=== PATIENT | male | born 1945 | race Caucasian/White ===

== ENCOUNTER → 2018-05-06 | Outpatient (CLI) | payer OTHER ==
--- NOTE | 2018-05-06 15:26 | US ---
EXAMINATION TYPE: US groin LT DATE OF EXAM: 05/06/2018 COMPARISON: NONE CLINICAL HISTORY: K40.91 Unilateral inguinal hernia. Patient positive for left inguinal hernia. Peristalsis seen with and without valsalva. IMPRESSION: Inguinal hernia is noted containing bowel.
== END | disposition home or self-care (01) ==
LOC: RADUSWWP 10:01
DX: K40.90 Unilateral inguinal hernia, without obstruction or gangrene, not specified as recurrent (principal)

== ENCOUNTER 2020-04-14 15:16 | Inpatient (IN) | payer OTHER, MEDICARE ==
[2020-04-14] MEDS ORDERED: SODIUM CHLORIDE 0.9% 500 ML 500 ML IV STA (15:20)
--- NOTE | 2020-04-14 15:30 | ED ---
General Adult HPI - General Source: EMS Mode of arrival: EMS Limitations: no limitations <Monica Perez - Last Filed: 04/14/20 19:01> <Vicky Peralta - Last Filed: 04/15/20 16:24> - General Chief complaint: Syncope Stated complaint: syncopal episode Time Seen by Provider: 04/14/20 15:20 - History of Present Illness Initial comments: 75-year-old male history of thoracic aortic aneurysm presenting to the emergency department today for chief complaint of syncopal episode. Patient states he felt lightheaded suddenly sweaty and had a syncopal episode just prior to arrival he is unsure how long he was unconscious. Patient denies any seizure history. Patient states he called EMS for transportation to the emergency department he denies any chest pain he states he has slight shortness of breath at times Denies leg swelling, back pain, epigastric or abdominal pain. Denies headaches, nausea, vomiting, visual changes, denies neck pain, denies anticoagulation use. Patient denies injury to extremities, abdomen or back from fall. Patient denies current symptoms. UPon arrival patient appears wlel nontoxic in no acute dsitress. Patient was no aware of his thoracic aortic aneurysm on arrival this was caught on patient previous visits on chart review. (Monica Perez) - Related Data Home Medications Medication Instructions Recorded Confirmed Cholecalciferol [Vitamin D3 (25 2,000 unit PO DAILY 04/14/20 04/14/20 Mcg = 1000 Iu)] Lisinopril-Hctz 20-12.5 mg 1 tab PO DAILY 04/14/20 04/14/20 [Zestoretic 20-12.5] Omeprazole 20 mg PO DAILY 04/14/20 04/14/20 Simvastatin [Zocor] 10 mg PO HS 04/14/20 04/14/20 Allergies Allergy/AdvReac Type Severity Reaction Status Date / Time No Known Allergies Allergy Verified 04/14/20 18:42 Review of Systems ROS Other: All systems not noted in ROS Statement are negative. <Monica Perez - Last Filed: 04/14/20 19:01> ROS Other: All systems not noted in ROS Statement are negative. <Vicky Peralta - Last Filed: 04/15/20 16:24> ROS Statement: Those systems with pertinent positive or pertinent negative responses have been documented in the HPI. Past Medical History Past Medical History: No Reported History Additional Past Medical History / Comment(s): THORACIC AORTIC ANEURSYM History of Any Multi-Drug Resistant Organisms: None Reported Past Surgical History: No Surgical Hx Reported Past Psychological History: No Psychological Hx Reported Smoking Status: Current every day smoker Past Alcohol Use History: None Reported Past Drug Use History: Marijuana <Monica Perez - Last Filed: 04/14/20 19:01> General Exam Limitations: no limitations <Monica Perez - Last Filed: 04/14/20 19:01> - General Exam Comments Initial Comments: General: The patient is awake and alert, in no distress, and does not appear acutely ill. Eye: +3 mm pupils are equal, round and reactive to light, extra-ocular movements are intact. No nystagmus. There is normal conjunctiva bilaterally. No signs of icterus. Ears, nose, mouth and throat: There are moist mucous membranes and no oral lesions. Neck: The neck is supple, there is no tenderness or JVD. Cardiovascular: There is a regular rate and rhythm. No murmur, rub or gallop is appreciated. Respiratory: Lungs are clear to auscultation, respirations are non-labored, breath sounds are equal. No wheezes, stridor, rales, or rhonchi. Gastrointestinal: Soft, non-distended, non-tender abdomen without masses or organomegaly noted. There is no rebound or guarding present. No pulsatile masses. Musculoskeletal: Normal ROM, no tenderness. Strength 5/5. Sensation intact. Radial and DP pulses equal bilaterally 2+. Neurological: A&O x 3. CN II-XII intact grossly, There are no obvious motor or sensory deficits. Coordination appears grossly intact. Speech is normal. Skin: Skin is warm and dry and no rashes or lesions are noted. No leg swelling or calf pain Psychiatric: Cooperative, appropriate mood & affect, normal judgment. 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 Normal sinus no ST elevation or depression is appreciated. <Monica Perez - Last Filed: 04/14/20 19:01> Medical Decision Making - Lab Data Result diagrams: 04/14/20 15:28 04/14/20 15:28 <Monica Perez - Last Filed: 04/14/20 19:01> - Lab Data Result diagrams: 04/15/20 10:10 04/15/20 10:10 <Vicky Peralta - Last Filed: 04/15/20 16:24> - Medical Decision Making 75-year-old male presenting today for syncopal episode history of thoracic aneurysm that is being monitored by vascular surgery No CP/Slight SOB. NO leg swelling. No back pain. Lungs clear. Slight murmur appreciated. CXR clear. CTA (-) for acute process. Patient labs stable. troponin (-). continues to appear well in the ER. Patient will be admitted for monitoring, cardiology evaluation possible echocardiogram. patient is agreeable to admission and care plan. Dr Peralta is agreeable to care plan and admission, Trevon MERCER affiliated with [facility] accepted admission. (Monica Perez) I was available for consultation in the emergency department. The history and physical exam were done by the midlevel provider. [facility] I reviewed the case with the midlevel provider and based on their presentation of the patient, I agree with the assessment, medical decision making and plan of care as documented. Chart was dictated using [employer] dictation software. Attempts were made to correct any dictation errors however some typographical errors may persist. Patient was seen during a national state of emergency due to the Covid-19 pandemic. (Vicky Peralta) - Lab Data Lab Results 04/14/20 04/14/20 04/14/20 Range/Units 15:28 15:28 15:28 WBC 10.9 H (3.8-10.6) k/uL RBC 4.46 (4.30-5.90) m/uL Hgb 13.5 (13.0-17.5) gm/dL Hct 39.8 (39.0-53.0) % MCV 89.2 (80.0-100.0) fL MCH 30.3 (25.0-35.0) pg MCHC 33.9 (31.0-37.0) g/dL RDW 13.4 (11.5-15.5) % Plt Count 407 (150-450) k/uL Neutrophils % 55 % Lymphocytes % 33 % Monocytes % 7 % Eosinophils % 2 % Basophils % 1 % Neutrophils # 6.0 (1.3-7.7) k/uL Lymphocytes # 3.6 (1.0-4.8) k/uL Monocytes # 0.7 (0-1.0) k/uL Eosinophils # 0.2 (0-0.7) k/uL Basophils # 0.1 (0-0.2) k/uL PT 9.7 (9.0-12.0) sec INR 0.9 (<1.2) APTT 23.4 (22.0-30.0) sec Sodium (137-145) mmol/L Potassium (3.5-5.1) mmol/L Chloride (98-107) mmol/L Carbon Dioxide (22-30) mmol/L Anion Gap mmol/L BUN (9-20) mg/dL Creatinine (0.66-1.25) mg/dL Est GFR (CKD-EPI)AfAm (>60 ml/min/1.73 sqM) Est GFR (CKD-EPI)NonAf (>60 ml/min/1.73 sqM) Glucose (74-99) mg/dL POC Glucose (mg/dL) (75-99) mg/dL POC Glu Associate Veterinarian ID Calcium (8.4-10.2) mg/dL Magnesium (1.6-2.3) mg/dL Total Bilirubin (0.2-1.3) mg/dL AST (17-59) U/L ALT (4-49) U/L Alkaline Phosphatase (38-126) U/L Troponin I (0.000-0.034) ng/mL Total Protein (6.3-8.2) g/dL Albumin (3.5-5.0) g/dL Urine Color Light Yellow Urine Appearance Clear (Clear) Urine pH 6.5 (5.0-8.0) Ur Specific Reeder 1.038 H (1.001-1.035) Urine Protein Negative (Negative) Urine Glucose (UA) Negative (Negative) Urine Ketones Negative (Negative) Urine Blood Negative (Negative) Urine Nitrite Negative (Negative) Urine Bilirubin Negative (Negative) Urine Urobilinogen <2.0 (<2.0) mg/dL Ur Leukocyte Esterase Negative (Negative) 04/14/20 04/14/20 04/14/20 Range/Units 15:28 15:28 15:36 WBC (3.8-10.6) k/uL RBC (4.30-5.90) m/uL Hgb (13.0-17.5) gm/dL Hct (39.0-53.0) % MCV (80.0-100.0) fL MCH (25.0-35.0) pg MCHC (31.0-37.0) g/dL RDW (11.5-15.5) % Plt Count (150-450) k/uL Neutrophils % % Lymphocytes % % Monocytes % % Eosinophils % % Basophils % % Neutrophils # (1.3-7.7) k/uL Lymphocytes # (1.0-4.8) k/uL Monocytes # (0-1.0) k/uL Eosinophils # (0-0.7) k/uL Basophils # (0-0.2) k/uL PT (9.0-12.0) sec INR (<1.2) APTT (22.0-30.0) sec Sodium 125 L (137-145) mmol/L Potassium 4.8 (3.5-5.1) mmol/L Chloride 90 L (98-107) mmol/L Carbon Dioxide 24 (22-30) mmol/L Anion Gap 11 mmol/L BUN 13 (9-20) mg/dL Creatinine 0.74 (0.66-1.25) mg/dL Est GFR (CKD-EPI)AfAm >90 (>60 ml/min/1.73 sqM) Est GFR (CKD-EPI)NonAf >90 (>60 ml/min/1.73 sqM) Glucose 95 (74-99) mg/dL POC Glucose (mg/dL) 101 H (75-99) mg/dL POC Glu Associate Veterinarian ID Ivette Gil Calcium 8.9 (8.4-10.2) mg/dL Magnesium 2.2 (1.6-2.3) mg/dL Total Bilirubin 0.7 (0.2-1.3) mg/dL AST 32 (17-59) U/L ALT 12 (4-49) U/L Alkaline Phosphatase 66 (38-126) U/L Troponin I 0.025 (0.000-0.034) ng/mL Total Protein 7.2 (6.3-8.2) g/dL Albumin 4.4 (3.5-5.0) g/dL Urine Color Urine Appearance (Clear) Urine pH (5.0-8.0) Ur Specific Reeder (1.001-1.035) Urine Protein (Negative) Urine Glucose (UA) (Negative) Urine Ketones (Negative) Urine Blood (Negative) Urine Nitrite (Negative) Urine Bilirubin (Negative) Urine Urobilinogen (<2.0) mg/dL Ur Leukocyte Esterase (Negative) Disposition Is patient prescribed a controlled substance at d/c from ED?: No Time of Disposition: 18:26 Decision to Admit Reason: Admit from EC Decision Date: 04/14/20 Decision Time: 18:26 <Monica Perez - Last Filed: 04/14/20 19:01> <Vicky Peralta - Last Filed: 04/15/20 16:24> Clinical Impression: Syncope, Pulmonary nodule, Liver lesion Disposition: ADMITTED IP TO THIS HOSP Condition: Stable
[2020-04-14 15:40] LABS: Glucose,Whole Blood 101 mg/dL (75-99)
[2020-04-14 15:50] LABS: Basophils # (A) 0.1 k/uL (0-0.2); Basophils % (A) 1 %; Eosinophils # (A) 0.2 k/uL (0-0.7); Eosinophils % (A) 2 %; HCT 39.8 % (39.0-53.0); HGB 13.5 gm/dL (13.0-17.5); Lymphocytes # (A) 3.6 k/uL (1.0-4.8); Lymphocytes % (A) 33 %; MCH 30.3 pg (25.0-35.0); MCHC 33.9 g/dL (31.0-37.0); MCV 89.2 fL (80.0-100.0); Mean Platelet Volume 7.9; Monocytes # (A) 0.7 k/uL (0-1.0); Monocytes % (A) 7 %; Neutrophils % (A) 55 %; Platelet Count 407 k/uL (150-450); RBC 4.46 m/uL (4.30-5.90); RDW 13.4 % (11.5-15.5); WBC 10.9 k/uL (3.8-10.6)
[2020-04-14 15:57] LABS: ALT 12 U/L (4-49); AST 32 U/L (17-59); African American GFR (CKD) >90 (>60 ml/min/1.73 sqM); Albumin 4.4 g/dL (3.5-5.0); Alkaline Phosphatase 66 U/L (38-126); Anion Gap 11 mmol/L; Blood Urea Nitrogen 13 mg/dL (9-20); Calcium 8.9 mg/dL (8.4-10.2); Carbon Dioxide 24 mmol/L (22-30); Chloride 90 mmol/L (98-107); Glucose 95 mg/dL (74-99); Magnesium 2.2 mg/dL (1.6-2.3); Non-African American GFR(CKD) >90 (>60 ml/min/1.73 sqM); Potassium 4.8 mmol/L (3.5-5.1); Sodium 125 mmol/L (137-145); Total Bilirubin 0.7 mg/dL (0.2-1.3); Total Protein 7.2 g/dL (6.3-8.2)
[2020-04-14 16:34] LABS: INR 0.9 (<1.2); Partial Thromboplastin Time 23.4 sec (22.0-30.0); Prothrombin Time 9.7 sec (9.0-12.0)
--- NOTE | 2020-04-14 17:14 | XR ---
EXAMINATION: XR chest 2V DATE AND TIME: 04/14/2020 4:31 PM CLINICAL INDICATION: PHH; syncope TECHNIQUE: One frontal and 2 lateral views were obtained. COMPARISON: None FINDINGS: The lungs are clear. The pleural spaces are negative. The cardiac silhouette is not enlarged. The remainder of the mediastinal silhouette is unremarkable. The skeletal structures and soft tissues are negative for acute findings. IMPRESSION: No acute radiographic process
[2020-04-14 17:29] LABS: Appearance,Urine Clear (Clear); Bilirubin,Urine Negative (Negative); Blood,Urine Negative (Negative); Color,Urine Light Yellow; Glucose,Urine (UA) Negative (Negative); Ketones,Urine Negative (Negative); Leukocyte Esterase,Urine Negative (Negative); Nitrite,Urine Negative (Negative); PH, Urine 6.5 (5.0-8.0); Protein,Urine Negative (Negative); Specific Gravity,Urine 1.038 (1.001-1.035); Urobilinogen,Urine <2.0 mg/dL (<2.0)
--- NOTE | 2020-04-14 17:39 | CT ---
EXAMINATION TYPE: CT ANGIO THOR/ABD PEL AORTA WO/WITH CONTRAST AND WITH 3-D RECONSTRUCTION RENDERINGS DATE OF EXAM: 04/14/2020 HISTORY: Syncope, lightheaded; thoracic aneurysm history CT DLP: 523.6 mGycm. Automated Exposure Control for Dose Reduction was Utilized. TECHNIQUE: Departmental protocol CTA scan of the thorax, abdomen and pelvis performed, patient inject ed with 100 mL of Omnipaque 350. COMPARISON: Ultrasound left inguinal region 05/06/2018 FINDINGS: VASCULATURE: There are prominent atherosclerotic intimal calcification seen throughout the arterial a natomy of the chest and abdomen and pelvis, including prominent left and right coronary calcification s. Ascending aorta caliber measures 4.0 cm. Remainder of the thoracic aorta and origins of the great vessels are unremarkable. The abdominal pelvic aorta is tortuous, but nonaneurysmal and without hemod ynamically-significant stenoses. The aortoiliac inflow is widely patent. The bilateral iliacs and com mon femoral arteries and proximal superficial and profunda femoral arteries are widely patent. LUNGS: There are moderate emphysematous changes. There is a soft tissue density smoothly marginated l eft upper lobe 5 mm pulmonary nodule seen on axial image 23/116. Would advise 6 month follow-up chest CT. There is no pleural effusion or pneumothorax seen. The tracheobronchial tree is patent. MEDIASTINUM: There is no cardiomegaly. No pericardial effusion. There are no greater than 1 cm hilar or mediastinal lymph nodes. No pericardial effusion is seen. OTHER: No additional significant abnormality is seen. LIVER/GB: In the lower medial segment left hepatic lobe there is a 1 cm diameter hyperdense focus con sistent with focal vascular structure. This nonspecific finding can be further characterized with non urgent MRI. PANCREAS: No significant abnormality is seen. SPLEEN: No significant abnormality is seen. ADRENALS: No significant abnormality is seen. KIDNEYS: No significant abnormality is seen. BOWEL: No significant abnormality is seen. GENITAL ORGANS: No gross abnormality seen. LYMPH NODES: No greater than 1cm abdominal or pelvic lymph nodes are appreciated. OSSEOUS STRUCTURES: No significant abnormality is seen. OTHER: Left inguinal small bowel herniation is redemonstrated, measuring approximately 5 cm mean diam eter, without evidence of small bowel obstruction or bowel wall thickening or periluminal edematous r eticulation. Similar findings were seen on the ultrasound dated 04/16/2018. Venous structures are negative for acute findings. IMPRESSION: 1. NO ACUTE PROCESS. 2. Scattered nonacute findings, as discussed and underlined above.
[2020-04-14] MEDS ORDERED: NALOXONE 0.4 MG/ML 1 ML VIAL IV PRN (18:24)
[2020-04-14] MEDS: SODIUM CHLORIDE 0.9% 1,000 ML IV SCH (19:04)
[2020-04-15] MEDS: SODIUM CHLORIDE 0.9% 1,000 ML IV SCH (09:17)
[2020-04-15 10:41] LABS: HCT 35.3 % (39.0-53.0); HGB 11.7 gm/dL (13.0-17.5); MCH 29.9 pg (25.0-35.0); MCHC 33.1 g/dL (31.0-37.0); MCV 90.3 fL (80.0-100.0); Mean Platelet Volume 7.3; Platelet Count 357 k/uL (150-450); RBC 3.91 m/uL (4.30-5.90); RDW 13.5 % (11.5-15.5); WBC 11.2 k/uL (3.8-10.6)
[2020-04-15 10:51] LABS: African American GFR (CKD) >90 (>60 ml/min/1.73 sqM); Anion Gap 6 mmol/L; Blood Urea Nitrogen 10 mg/dL (9-20); Calcium 8.5 mg/dL (8.4-10.2); Carbon Dioxide 23 mmol/L (22-30); Chloride 100 mmol/L (98-107); Glucose 89 mg/dL (74-99); Non-African American GFR(CKD) >90 (>60 ml/min/1.73 sqM); Potassium 4.4 mmol/L (3.5-5.1); Sodium 129 mmol/L (137-145)
--- NOTE | 2020-04-15 12:00 | ECHOF ---
Referral Reason:syncope MEASUREMENTS -------- HEIGHT: 167.6 cm WEIGHT: 57.6 kg BP: 114/71 RVIDd: 2.7 cm (< 3.3) IVSd: 1.2 cm (0.6 - 1.1) LVIDd: 3.8 cm (3.9 - 5.3) LVPWd: 1.2 cm (0.6 - 1.1) IVSs: 1.8 cm LVIDs: 2.4 cm LVPWs: 1.3 cm LA Diam: 2.9 cm (2.7 - 3.8) LAESV Index (A-L): 13.89 ml/m Ao Diam: 3.8 cm (2.0 - 3.7) AV Cusp: 2.3 cm (1.5 - 2.6) MV EXCURSION: 21.866 mm (> 18.000) MV EF SLOPE: 76 mm/s (70 - 150) EPSS: 0.6 cm MV E Lorenzo: 0.90 m/s MV DecT: 220 ms MV A Lorenzo: 0.57 m/s MV E/A Ratio: 1.57 RAP: 5.00 mmHg RVSP: 42.71 mmHg FINDINGS -------- Sinus rhythm. This was a technically good study. The left ventricular size is normal. There is borderline concentric left ventricular hypertrophy. Overall left ventricular systolic function is normal with, an EF between 60 - 65 %. The right ventricle is normal in size. Normal LA size by volume 22+/-6 ml/m2. The right atrium is normal in size. Interatrial and interventricular septum intact. The aortic valve is trileaflet and appears structurally normal. Trace to mild aortic regurgitation. Mild tricuspid regurgitation present. There is mild pulmonary hypertension. The right ventricular systolic pressure, as measured by Doppler, is 42.71mmHg. Trace/mild (physiologic) pulmonic regurgitation. Aortic root not well visualized. Normal inferior vena cava with normal inspiratory collapse consistent with estimated right atrial pre ssure of 5 mmHg. There is no pericardial effusion. CONCLUSIONS -------- 1. The left ventricular size is normal. 2. There is borderline concentric left ventricular hypertrophy. 3. Overall left ventricular systolic function is normal with, an EF between 60 - 65 %. 4. The aortic valve is trileaflet and appears structurally normal. 5. Trace to mild aortic regurgitation. 6. Mild tricuspid regurgitation present. 7. There is mild pulmonary hypertension. 8. The right ventricular systolic pressure, as measured by Doppler, is 42.71mmHg. 9. Trace/mild (physiologic) pulmonic regurgitation. 10. There is no pericardial effusion. CELL PHONE REPAIR TECHNICIAN: Cristal Shelby RDCS
[2020-04-15 13:25] VITALS: BP 122/74; PULSE 55; RESP 18; TEMP 97.5
--- NOTE | 2020-04-15 13:54 | P.CRDCN ---
History of Present Illness Consult date: 04/15/20 Consult reason: sycope History of present illness: HISTORY OF PRESENTING ILLNESS This is a pleasant 75-year-old male with history of hyperlipidemia and hypertension who presents secondary to syncopal episode. Patient states that he was walking outside when he all of a sudden became somewhat sweaty and had a near syncopal episode. He states he could feel it coming on and therefore tried to lower himself to the ground however then passed out. He denies any prior history of this. He denies any preceding chest pain, palpitations, shortness breath. He admits that it was somewhat overly hot and believes he was somewhat dehydrated that morning. He admits he has never seen a credit or loans officer before. No prior history of heart disease, no WI, no heart failure. He admits she does not eat much salt in his diet and eats a good amount of cereal and toast without much meat. He was found to be hyponatremic with initial sodium 125 which improv ed to 129 today. Currently today he states he feels well and is walking the halls without difficulty. DIAGNOSTICS EKG reveals normal sinus rhythm, normal axis, nonspecific borderline ST depression in [address] thorax with contrast shows ascending aortic aneurysm at 4.0 cm. Laboratory reviewed, white blood cell count 10.9, 11.2 today, sodium 125, 129 today creatinine 0.74, troponin 0.0251. Cardiac medications: Home simvastatin 10 mg daily, home lisinopril/hydrochlorothiazide 12.5 mg daily REVIEW OF SYSTEMS At the time of my exam: CONSTITUTIONAL: Denies fever or chills. CARDIOVASCULAR: Denies chest pain, shortness of breath, orthopnea, PND or palpitations. + Syncope RESPIRATORY: Denies cough. GASTROINTESTINAL: Denies abdominal pain, diarrhea, constipation, nausea or vomiting. MUSCULOSKELETAL: Denies myalgias. NEUROLOGIC: Denies numbness, tingling or weakness. ENDOCRINE: Denies fatigue, weight change, polydipsia or polyurina. GENITOURINARY: Denies burning, hematuria or urgency with micturation. HEMATOLOGIC: Denies history of anemia or bleeding. PHYSICAL EXAMINATION Blood pressure 149/73 heart rate 56 bpm afebrile and maintaining oxygen saturation on room air. CONSTITUTIONAL: No apparent distress. HEENT: Head is normocephalic. Pupils are equal, round. Sclerae anicteric. Mucous membranes of the mouth are moist. No JVD. No carotid bruit. CHEST EXAMINATION: Lungs are clear to auscultation. No chest wall tenderness is noted on palpation or with deep breathing. HEART EXAMINATION: Regular rate and rhythm. S1, S2 heard. No murmurs, gallops or rub. ABDOMEN: Soft, nontender. Positive bowel sounds. EXTREMITIES: 2+ peripheral pulses, no lower extremity edema and no calf tenderness. NEUROLOGIC EXAMINATION: Patient is awake, alert and oriented x3. ASSESSMENT 1. Syncope with hyponatremia, patient feeling dehydrated on a hot day. Patient also with some prodrome of feeling flushed and may be vasovagal in origin. No significant bradycardia or tachyarrhythmias on monitor. 2. History of hypertension on lisinopril/hydrochlorothiazide at home. 3. Hyponatremia, likely exacerbated by hydrochlorothiazide plus possible tea and toast diet 4. Thoracic aortic aneurysm measuring 4.0 cm PLAN Patient had echocardiogram performed this morning which showed normal ejection fraction, no significant valvular disease and mildly elevated RVSP with normal right ventricular function. No significant bradycardia or tachyarrhythmias on monitor. Syncope likely related to multifactorial with mild dehydration, vasovagal with severe heat outside. Patient clear for discharge from a cardiac standpoint with outpatient follow-up in 1 week. I would recommend discontinuing hydrochlorothiazide given significant hyponatremia. If blood pressure remains elevated may increase his lisinopril. Past Medical History Past Medical History: GERD/Reflux, Hyperlipidemia, Hypertension Additional Past Medical History / Comment(s): THORACIC AORTIC ANEURSYM? History of Any Multi-Drug Resistant Organisms: None Reported Past Surgical History: Adenoidectomy, Tonsillectomy Past Anesthesia/Blood Transfusion Reactions: No Reported Reaction Past Psychological History: No Psychological Hx Reported Smoking Status: Current every day smoker Past Alcohol Use History: None Reported Past Drug Use History: Marijuana - Past Family History Daughter(s) Family Medical History: No Reported History Medications and Allergies Home Medications Medication Instructions Recorded Confirmed Type Cholecalciferol [Vitamin D3 (25 2,000 unit PO DAILY 04/14/20 04/14/20 History Mcg = 1000 Iu)] Lisinopril-Hctz 20-12.5 mg 1 tab PO DAILY 04/14/20 04/14/20 History [Zestoretic 20-12.5] Omeprazole 20 mg PO DAILY 04/14/20 04/14/20 History Simvastatin [Zocor] 10 mg PO HS 04/14/20 04/14/20 History Allergies Allergy/AdvReac Type Severity Reaction Status Date / Time No Known Allergies Allergy Verified 04/14/20 18:42 Physical Exam Vitals: Vital Signs Temp Pulse Pulse Pulse Resp BP BP 04/15/20 13:00 97.5 F L 55 L 18 122/74 04/15/20 05:00 98.0 F 56 L 16 114/71 04/14/20 19:53 96.9 F L 72 20 149/73 04/14/20 19:00 66 16 118/84 04/14/20 18:00 70 19 123/82 04/14/20 17:00 77 17 133/80 04/14/20 16:00 63 16 129/83 04/14/20 15:26 64 65 16 04/14/20 15:17 98.0 F 68 16 129/87 Pulse Ox 04/15/20 13:00 98 04/15/20 05:00 96 04/14/20 19:53 97 04/14/20 19:00 98 04/14/20 18:00 97 04/14/20 17:00 98 04/14/20 16:00 97 04/14/20 15:26 98 04/14/20 15:17 98 Intake and Output 04/14/20 04/15/20 04/15/20 22:59 06:59 14:59 Intake Total 150 1190 Balance 150 1190 Intake: Intake, IV Titration 150 600 Amount Sodium Chloride 0.9% 1, 150 600 000 ml @ 75 mls/hr IV . [id number] [facility] Rx#:[id number] Oral 590 Other: Voiding Method Toilet # Voids 3 Weight 58 kg Results 04/15/20 10:10 04/15/20 10:10 Cardiac Enzymes 04/14/20 04/14/20 Range/Units 15:28 15:28 AST 32 (17-59) U/L Troponin I 0.025 (0.000-0.034) ng/mL Coagulation 04/14/20 Range/Units 15:28 PT 9.7 (9.0-12.0) sec APTT 23.4 (22.0-30.0) sec CBC 04/14/20 04/15/20 Range/Units 15:28 10:10 WBC 10.9 H 11.2 H (3.8-10.6) k/uL RBC 4.46 3.91 L (4.30-5.90) m/uL Hgb 13.5 11.7 L (13.0-17.5) gm/dL Hct 39.8 35.3 L (39.0-53.0) % Plt Count 407 357 (150-450) k/uL Comprehensive Metabolic Panel 04/14/20 04/15/20 Range/Units 15:28 10:10 Sodium 125 L 129 L (137-145) mmol/L Potassium 4.8 4.4 (3.5-5.1) mmol/L Chloride 90 L 100 (98-107) mmol/L Carbon Dioxide 24 23 (22-30) mmol/L BUN 13 10 (9-20) mg/dL Creatinine 0.74 0.70 (0.66-1.25) mg/dL Glucose 95 89 (74-99) mg/dL Calcium 8.9 8.5 (8.4-10.2) mg/dL AST 32 (17-59) U/L ALT 12 (4-49) U/L Alkaline Phosphatase 66 (38-126) U/L Total Protein 7.2 (6.3-8.2) g/dL Albumin 4.4 (3.5-5.0) g/dL Current Medications Generic Name Dose Route Start Last Admin Trade Name Freq PRN Reason Stop Dose Admin Famotidine 20 mg 04/15/20 21:00 Pepcid PO BID BRENDA Heparin Sodium (Porcine) 5,000 unit 04/15/20 21:00 Heparin SQ Q12HR BRENDA Sodium Chloride 1,000 mls @ 75 mls/hr 04/14/20 18:30 04/15/20 09:17 Saline 0.9% IV 75 mls/hr .[id number] BRENDA Administration Naloxone HCl 0.2 mg 04/14/20 18:24 Narcan IV Q2M PRN Opioid Reversal Intake and Output 04/14/20 04/15/20 04/15/20 22:59 06:59 14:59 Intake Total 150 1190 Balance 150 1190 Intake: Intake, IV Titration 150 600 Amount Sodium Chloride 0.9% 1, 150 600 000 ml @ 75 mls/hr IV . [id number] [facility] Rx#:[id number] Oral 590 Other: Voiding Method Toilet # Voids 3 Weight 58 kg 04/15/20 10:10 04/15/20 10:10
--- NOTE | 2020-04-15 17:31 | P.CNPUL ---
History of Present Illness Consult date: 04/15/20 Reason for consult: dyspnea, COPD Chief complaint: Pulmonary nodule History of present illness: This is a 75-year-old male who was admitted to hospital with syncope, patient has ongoing dyspnea on exertion denies any cough or sputum production, he smokes about 1 pack per day and has been smoking for 40-50 years, his chest x-ray revealed emphysematous changes like COPD, his computed tomography scan which is performed on CT angiography protocol for thoracic aorta found to have incidental 5 mm left upper nodule noted nodule has smooth margins, patient currently being planned for discharge Review of Systems All systems: negative Past Medical History Past Medical History: GERD/Reflux, Hyperlipidemia, Hypertension Additional Past Medical History / Comment(s): THORACIC AORTIC ANEURSYM? History of Any Multi-Drug Resistant Organisms: None Reported Past Surgical History: Adenoidectomy, Tonsillectomy Past Anesthesia/Blood Transfusion Reactions: No Reported Reaction Past Psychological History: No Psychological Hx Reported Smoking Status: Current every day smoker Past Alcohol Use History: None Reported Past Drug Use History: Marijuana - Past Family History Daughter(s) Family Medical History: No Reported History Medications and Allergies Home Medications Medication Instructions Recorded Confirmed Type Cholecalciferol [Vitamin D3 (25 2,000 unit PO DAILY 04/14/20 04/14/20 History Mcg = 1000 Iu)] Lisinopril-Hctz 20-12.5 mg 1 tab PO DAILY 04/14/20 04/14/20 History [Zestoretic 20-12.5] Omeprazole 20 mg PO DAILY 04/14/20 04/14/20 History Simvastatin [Zocor] 10 mg PO HS 04/14/20 04/14/20 History Allergies Allergy/AdvReac Type Severity Reaction Status Date / Time No Known Allergies Allergy Verified 04/14/20 18:42 Physical Exam Vitals: Vital Signs Temp Pulse Pulse Resp BP BP Pulse Ox 04/15/20 13:00 97.5 F L 55 L 18 122/74 98 04/15/20 05:00 98.0 F 56 L 16 114/71 96 04/14/20 19:53 96.9 F L 72 20 149/73 97 04/14/20 19:00 66 16 118/84 98 04/14/20 18:00 70 19 123/82 97 Intake and Output 04/15/20 04/15/20 04/15/20 06:59 14:59 22:59 Intake Total 1190 Balance 1190 Intake: Intake, IV Titration 600 Amount Sodium Chloride 0.9% 1, 600 000 ml @ 75 mls/hr IV . [id number] [facility] Rx#:[id number] Oral 590 Other: Voiding Method Toilet # Voids 3 2 # Bowel Movements 1 - Constitutional General appearance: average body habitus, disheveled - EENT Eyes: EOMI, PERRLA ENT: normal oropharynx Ears: bilateral: normal - Neck Neck: normal ROM Carotids: bilateral: upstroke normal Thyroid: bilateral: normal size - Respiratory Respiratory: bilateral: CTA - Cardiovascular Rhythm: regular Heart sounds: normal: S1, S2 - Gastrointestinal General gastrointestinal: normal bowel sounds - Neurologic Neurologic: CNII-XII intact - Musculoskeletal Musculoskeletal: gait normal, generalized weakness, strength equal bilaterally - Psychiatric Psychiatric: A&O x's 3, appropriate affect, intact judgment & insight Results - Laboratory Findings CBC and BMP: 04/15/20 10:10 04/15/20 10:10 PT/INR, D-dimer PT 9.7 sec (9.0-12.0) 04/14/20 15:28 INR 0.9 (<1.2) 04/14/20 15:28 Abnormal lab findings: Abnormal Labs 04/14/20 04/14/20 04/14/20 15:28 15:28 15:28 WBC 10.9 H RBC Hgb Hct Sodium 125 L Chloride 90 L POC Glucose (mg/dL) Ur Specific [place] 1.038 H 04/14/20 04/15/20 04/15/20 15:36 10:10 10:10 WBC 11.2 H RBC 3.91 L Hgb 11.7 L Hct 35.3 L Sodium 129 L Chloride POC Glucose (mg/dL) 101 H Ur Specific [place] - Diagnostic Findings Chest x-ray: report reviewed, image reviewed CT scan - chest: report reviewed, image reviewed (Finding as noted above) Assessment and Plan Assessment: Left upper lobe 0.5 cm nodule 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
[2020-04-15] MEDS ORDERED: FAMOTIDINE 20 MG TAB PO SCH (21:00)
[2020-04-15] MEDS ORDERED: HEPARIN SODIUM,PORCINE 5,000 UNIT/ML 1 ML VIAL SQ SCH (21:00)
--- NOTE | 2020-04-16 00:16 | P.HPIM ---
History of Present Illness Please consider this note as combined H&P and discharge summary this is a pleasant 75 years old male with multiple medical problems as below presents because of presyncope. Patient states that he passed out yesterday b ecause he was sweating a lot because it was hot and he was not drinking enough fluid, he was walking to [place] when he felt about to pass out, he started getting down to the floor but he did not lose consciousness completely and he was able to manage not to pull, there is some bystanders and people helped him sit up, where he said therefore a while. This episode lasted for a few minutes. It is not associated with headache, numbness, weakness, blurred vision, slurred speech, no chest pain or dyspnea, no palpitation, no vomiting, no change in urine or bowel habits. No fever he has a thoracic aortic CT scans with contrast showing left upper lobe 5 mm pulmonary nodulealso there was 1 cm hyperdense focus consistent with focal vascular structures. This nonspecific finding can be further characterized with non-urgent MRI Diagnoses presyncope secondary to dehydration and excessive sweating. Consult 5 mm pulmonary nodule in the left upper lobe 1 cm hyperdense focus consistence with vascular hepatic structure Review of systems CONSTITUTIONAL: No fever, no malaise, no fatigue. HEENT: No recent visual problems or hearing problems. Denied any sore throat. CARDIOVASCULAR: No orthopnea, PND, no palpitations, no syncope. PULMONARY: No shortness of breath, no cough, no hemoptysis. GASTROINTESTINAL: No diarrhea, no nausea, no vomiting, no abdominal pain. Normoactive bowel sounds. NEUROLOGICAL: No headaches, no weakness, no numbness. HEMATOLOGICAL: Denies any bleeding or petechiae. GENITOURINARY: Denies any burning micturition, frequency, or urgency. MUSCULOSKELETAL/RHEUMATOLOGICAL: Denies any joint pain, swelling, or any muscle pain. ENDOCRINE: Denies any polyuria or polydipsia. Physical exam GENERAL: The patient is alert and oriented x3, not in any acute distress. Well developed, well nourished. HEENT: Pupils are round and equally reacting to light. EOMI. No scleral icterus. No conjunctival pallor. Normocephalic, atraumatic. No pharyngeal erythema. No thyromegaly. CARDIOVASCULAR: S1 and S2 present. No murmurs, rubs, or gallops. PULMONARY: Chest is clear to auscultation, no wheezing or crackles. ABDOMEN: Soft, nontender, nondistended, normoactive bowel sounds. No palpable organomegaly. MUSCULOSKELETAL: No joint swelling or deformity. EXTREMITIES: No cyanosis, clubbing, or pedal edema. NEUROLOGICAL: Gross neurological examination did not reveal any focal deficits. SKIN: No rashes. No petechiae Discharge plan this is a pleasant 75 years old male who presents with syncope/presyncope. Cardiology team are evaluated him and cleared him for discharge . Orthostatic vitals were negative. Patient informed about his lung lesion and liver lesion was risks including but not limited to cancer explained and he verbalized understand acceptance he follows up with the [facility] and nurse practitioner Audrey, I called today and she was available so I spoke with her colleague ANURAG Cotter and I discussed the case with her including the pulmonary nodule of the liver lesion with recommendation for outpatient follow-up with repeat CAT scan of the chest in 3-6 months and not emergent MRI for the liver lesion and she currently took notes of it, and also she is willing to see him for post hospital follow-up and appointment has made for him on 04/28 at 1:00 with her and he agrees to go and see her on the appointment date. Also patient has been evaluated by pulmonary service and the recommend to see him as an outpatient, patient instructed and he agrees with this recommendation Problems and management plan were discussed with the patient and he verbalized understanding and acceptance Patient was found stable and can be discharged home however he needs follow-up as an outpatient. Patient was instructed to follow up with PCP ANURAG Cotter and he agrees with her appointment. Also patient was instructed to follow up with cartridge assembler Dr. Maite Long in [address] Puente the sales financial analyst in 1-2 weeks and he agrees to call and make appointment and/or discuss his follow-up with his PCP ANURAG Cotter. Risks including but not limited to cancer explained for him and he verbalized understanding and acceptance Time spent more than 35 minutes Past Medical History Past Medical History: GERD/Reflux, Hyperlipidemia, Hypertension Additional Past Medical History / Comment(s): THORACIC AORTIC ANEURSYM? History of Any Multi-Drug Resistant Organisms: None Reported Past Surgical History: Adenoidectomy, Tonsillectomy Past Anesthesia/Blood Transfusion Reactions: No Reported Reaction Past Psychological History: No Psychological Hx Reported Smoking Status: Current every day smoker Past Alcohol Use History: None Reported Past Drug Use History: Marijuana - Past Family History Daughter(s) Family Medical History: No Reported History Medications and Allergies Home Medications Medication Instructions Recorded Confirmed Type Cholecalciferol [Vitamin D3 (25 2,000 unit PO DAILY 04/14/20 04/14/20 History Mcg = 1000 Iu)] Lisinopril-Hctz 20-12.5 mg 1 tab PO DAILY 04/14/20 04/14/20 History [Zestoretic 20-12.5] Omeprazole 20 mg PO DAILY 04/14/20 04/14/20 History Simvastatin [Zocor] 10 mg PO HS 04/14/20 04/14/20 History Allergies Allergy/AdvReac Type Severity Reaction Status Date / Time No Known Allergies Allergy Verified 04/14/20 18:42 Physical Exam Vitals: Vital Signs Temp Pulse Pulse Pulse Resp BP BP 04/15/20 05:00 98.0 F 56 L 16 114/71 04/14/20 19:53 96.9 F L 72 20 149/73 04/14/20 19:00 66 16 118/84 04/14/20 18:00 70 19 123/82 04/14/20 17:00 77 17 133/80 04/14/20 16:00 63 16 129/83 04/14/20 15:26 64 65 16 04/14/20 15:17 98.0 F 68 16 129/87 Pulse Ox 04/15/20 05:00 96 04/14/20 19:53 97 04/14/20 19:00 98 04/14/20 18:00 97 04/14/20 17:00 98 04/14/20 16:00 97 04/14/20 15:26 98 04/14/20 15:17 98 Intake and Output 04/14/20 04/15/20 04/15/20 22:59 06:59 14:59 Intake Total 150 1190 Balance 150 1190 Intake: Intake, IV Titration 150 600 Amount Sodium Chloride 0.9% 1, 150 600 000 ml @ 75 mls/hr IV . [id number] [facility] Rx#:[id number] Oral 590 Other: Voiding Method Toilet # Voids 3 Weight 58 kg Results CBC & Chem 7: 04/15/20 10:10 04/15/20 10:10 Labs: Abnormal Lab Results - Last 24 Hours (Table) 04/14/20 04/14/20 04/14/20 Range/Units 15:28 15:28 15:28 WBC 10.9 H (3.8-10.6) k/uL Sodium 125 L (137-145) mmol/L Chloride 90 L (98-107) mmol/L POC Glucose (mg/dL) (75-99) mg/dL Ur Specific [place] 1.038 H (1.001-1.035) 04/14/20 Range/Units 15:36 WBC (3.8-10.6) k/uL Sodium (137-145) mmol/L Chloride (98-107) mmol/L POC Glucose (mg/dL) 101 H (75-99) mg/dL Ur Specific [place] (1.001-1.035) Thrombosis Risk Factor Assmnt - Choose All That Apply Any of the Below Risk Factors Present?: No Other Risk Factors: Yes Each Risk Factor Represents 3 Points: Age 75 years or older Other congenital or acquired thrombophilia - If yes, enter type in comment: No Thrombosis Risk Factor Assessment Total Risk Factor Score: 3 Thrombosis Risk Factor Assessment Level: Moderate Risk
== END 2020-04-15 18:05 | disposition home or self-care (01) | DRG 641 ==
LOC: EC 15:16 → 6NMEDSUR 18:01
PROVIDERS: ADMIT Hospitalist; ATTEND Hospitalist
DX: E86.0 Dehydration (principal); E78.5 Hyperlipidemia, unspecified; E87.1 Hypo-osmolality and hyponatremia; I71.2 Thoracic aortic aneurysm, without rupture; F17.200 Nicotine dependence, unspecified, uncomplicated; K76.9 Liver disease, unspecified; T50.2X5A Adverse effect of carbonic-anhydrase inhibitors, benzothiadiazides and other diuretics, initial encounter; K21.9 Gastro-esophageal reflux disease without esophagitis; I11.9 Hypertensive heart disease without heart failure; R61 Generalized hyperhidrosis; R91.1 Solitary pulmonary nodule; J43.9 Emphysema, unspecified; Z79.899 Other long term (current) drug therapy
CPT/HCPCS: 36415; 71046; 71275; 74174; 80048; 80053; 81003; 83735; 84484; 85025; 85027; 85610; 85730; 93005; 93306; 96360; 99285

== ENCOUNTER → 2020-05-24 | Outpatient (CLI) | payer OTHER ==
--- NOTE | 2020-05-25 06:56 | MR ---
EXAMINATION TYPE: MR abdomen wo/w con DATE OF EXAM: 05/24/2020 COMPARISON: CT abdomen 04/14/2020 HISTORY: Abnormal CT CONTRAST: Standard multiplanar, multisequence MRI departmental protocol utilizing 6 mL intravenous Gadavist tanisha olinium contrast. Liver has normal size and contour. There is no evidence of pleural effusion. Spleen has normal size. There is no evidence of pancreatic mass. Pancreatic duct appears normal. Gallbladder appears normal. The bile ducts are nondilated. Kidneys have normal size. There is no hydronephrosis. There is no evid ence of adrenal mass. There is no ascites. Stomach is intact. On the T2 images there is a 1.3 cm somewhat rounded area of increased signal in the posterior left lo be of the liver. This shows delayed enhancement with contrast and consistent with a varix or hemangio ma. The remainder of the liver appears normal. There is normal enhancement of the kidneys. The remain deepa of exam is unremarkable. IMPRESSION: Small enhancing focus in the left lobe of the liver consistent with a varix or hemangioma and of doub tful clinical significance. No change compared to the CT scan of 04/14/2020.
--- NOTE | 2020-05-25 07:23 | CTL ---
EXAMINATION TYPE: CT Low Dose Lung DATE OF EXAM ORDERED: 05/24/2020 COMPARISON: None HISTORY: . Low Dose CT Lung Screening CT DLP: 88.[address] CTDI: 2.5 mGy IV CONTRAST USED: None. SCREENING VISIT: First visit COMPARISON: None. TECHNIQUE: Low dose computed tomography scan was performed through the chest at 1 millimeter thick se ctions and reconstructed images in the coronal plane at [address] DIAGNOSTIC QUALITY: Satisfactory FINDINGS: LUNG NODULES: Not presentLeft lung: no nodules identified.Right lung: no nodules identified. LUNGS: COPD: Severity: There is moderate centrilobular emphysema noted. Mild subpleural fibrosis identified bilaterally. Fibrosis: Severity:None Lymph nodes: None Other findings: None RIGHT PLEURAL SPACE: Effusion: None Calcification: None Thickening: None Pneumothorax: None LEFT PLEURAL SPACE: Effusion: None Calcification: None Thickening: None Pneumothorax: None HEART: Heart Size: Mildly enlarged Coronary calcification: Mild Pericardial effusion: None OTHER FINDINGS: Upper abdomen: Fixed hiatal hernia identified. Bony thorax: Degenerative changes Supraclavicular region: No significant abnormalityOther: No significant abnormalityI IMPRESSION: 1. Moderate centrilobular emphysema with subpleural fibrosis. No distinct nodularity identified at th is time. FOLLOW UP CT CHEST RECOMMENDATION: Follow-up screening in one year. Smoking cessation is advised. CT LUNG RAD: LUNG RAD CATEGORY 1 negative
== END | disposition home or self-care (01) ==
LOC: RADMRIMAIN 15:59
DX: Z12.2 Encounter for screening for malignant neoplasm of respiratory organs (principal); J43.2 Centrilobular emphysema; J94.1 Fibrothorax; F17.210 Nicotine dependence, cigarettes, uncomplicated; R93.2 Abnormal findings on diagnostic imaging of liver and biliary tract
CPT/HCPCS: 74183; G0297; A9585

== ENCOUNTER → 2021-02-02 | Outpatient (CLI) | payer OTHER ==
--- NOTE | 2021-02-04 19:08 | CT ---
EXAMINATION TYPE: CT chest wo con DATE OF EXAM: 02/02/2021 COMPARISON: 04/14/2020 HISTORY: 75-year-old male Thoracic aortic aneurysm, without rupture. TECHNIQUE: Contiguous axial scanning of the chest without IV contrast. Coronal and sagittal reconstru ctions performed. CT DLP: 361 mGycm Automated exposure control for dose reduction was used. FINDINGS: Heart normal size without pericardial effusion. LAD and RCA coronary artery calcifications are presen t. Aortic root is ectatic at 3.8 cm, unchanged. Ascending aorta mildly aneurysmal at 4.0 cm, unchanged. Proximal arch mildly aneurysmal at 4.0 cm, unchanged. Variant direct takeoff of the nondominant left vertebral artery directly from the aortic arch. Scatte red mild atherosclerotic arch calcifications. Upper descending thoracic aorta borderline ectatic at 3.0 cm, unchanged. Mild aneurysm in the descending thoracic aorta at 3.2 cm, unchanged. Mild aneurysm lower descending thoracic aorta at 3.2 cm, unchanged. Nonenlarged lower right paratracheal lymph nodes measure up to 7 mm, unchanged. No thoracic lymphaden opathy by CT size criteria. Small bilateral fat-containing [place]dalek hernias. Mild diffuse bronchial wall thickening. Moderate centrilobular emphysema redemonstrated. Some scatter ed subpleural reticulation suggesting mild interstitial fibrosis especially in the upper and midlungs . No consolidation or pleural effusion. Noncontrast appearance of the visualized upper abdomen shows a small hiatal hernia. Bones: Moderate to severe degenerative change at the left glenohumeral joint with slight joint sublux ation. Accentuated midthoracic kyphosis with scattered moderate degenerative disc disease midthoraci c spine. IMPRESSION: 1. MILDLY ANEURYSMAL ASCENDING AORTA AT 4.0 CM AND MILD ANEURYSM DESCENDING THORACIC AORTA AT 3.2 CM, UNCHANGED. 2. COPD WITH MODERATE EMPHYSEMA. SOME SCATTERED MILD INTERSTITIAL FIBROSIS IS ALSO REDEMONSTRATED. 3. SMALL HIATAL HERNIA. INCIDENTAL REDEMONSTRATED MODERATE TO SEVERE LEFT GH JOINT OA.
== END | disposition home or self-care (01) ==
LOC: RADCTMAIN 15:47
DX: I71.2 Thoracic aortic aneurysm, without rupture (principal); J43.2 Centrilobular emphysema
CPT/HCPCS: 71250

== ENCOUNTER → 2021-04-24 | Outpatient (CLI) | payer OTHER | END | disposition home or self-care (01) | LOC: RADCTMAIN 09:31 | PROVIDERS: ATTEND Thoracic Surgery (Cardiothoracic Vascular Surgery) | DX: Z53.9 Procedure and treatment not carried out, unspecified reason (principal) ==

== ENCOUNTER → 2021-06-06 | Outpatient (CLI) | payer OTHER ==
--- NOTE | 2021-06-07 08:09 | CT ---
EXAMINATION TYPE: CT chest wo con DATE OF EXAM: 06/06/2021 COMPARISON: 02/02/2021 HISTORY: Thoracic aortic aneurysm w/out rupture CT DLP: 191.10 mGycm Unenhanced CTA of the thoracic aorta was performed from the lung apex through the upper abdomen. 3D reconstruction imaging obtained at a separate workstation. CT Chest: THORACIC AORTA: 4.3 cm ascending thoracic aortic aneurysm versus 4.3 cm previously. Ascending thoraci c aorta is also aneurysmal at 3.2 cm versus 3.2 cm. Mild atheromatous changes seen. There is no evid ence for dissection or periaortic collection. LUNGS: The lungs are clear and free of infiltrate or atelectasis. No pulmonary nodule or mass is det ected. No pleural effusion or CT evidence of interstitial lung disease. Moderate COPD changes. MEDIASTINUM: No evidence for mediastinal hematoma. The heart is mildly enlarged. Coronary artery c alcifications noted. No evidence for mediastinal mass or adenopathy. HILAR STRUCTURES: No evidence for mass. No hilar adenopathy is appreciated. OTHER: Small layering gallstones identified. Small hiatal hernia. IMPRESSION- Stable ascending and descending thoracic aortic aneurysms.
== END | disposition home or self-care (01) ==
LOC: RADCTMAIN 17:08
PROVIDERS: ATTEND Thoracic Surgery (Cardiothoracic Vascular Surgery)
DX: I71.2 Thoracic aortic aneurysm, without rupture (principal); J44.9 Chronic obstructive pulmonary disease, unspecified; K44.9 Diaphragmatic hernia without obstruction or gangrene
CPT/HCPCS: 71250

== ENCOUNTER → 2022-03-09 | Outpatient (CLI) | payer OTHER ==
--- NOTE | 2022-03-11 13:22 | CT ---
EXAMINATION TYPE: CT chest wo con DATE OF EXAM: 03/09/2022 COMPARISON: 06/06/2021 HISTORY: Thoracic aortic aneurysm, without rupture CT DLP: 171.30 mGycm, Automated exposure control for dose reduction was used. CONTRAST: Performed injected with 0 mL of Isovue 300. TECHNIQUE: Axial images were obtained at 5 mm thick sections. Reconstructed images are reviewed on registracija vozila computer in the coronal plane. FINDINGS: Portion of the thyroid visualized is normal. No suspicious lung nodules or focal infiltrates are present. Emphysematous changes with bulla are alistair dent No enlarged mediastinal or hilar adenopathy is evident. The ascending aorta diameter at the level o f the main pulmonary artery is 4.5 cm. Previous measurement 4.3 cm. The aorta tapers through its visu alized course. The main pulmonary artery diameter at the bifurcation is 2.4 cm. Coronary artery calci fication is present. Limited CT sections are obtained through the upper abdomen. Small amount of gravel or gallstones may be within the dependent gallbladder visualized. IMPRESSIONS: 1. Thoracic aortic aneurysm measurements are 2 mm greater than comparison with an AP diameter 4.5 cm currently. 2. Emphysematous changes
== END | disposition home or self-care (01) ==
LOC: RADCTMAIN 16:36
PROVIDERS: ATTEND Family Medicine
DX: I71.2 Thoracic aortic aneurysm, without rupture (principal); J43.9 Emphysema, unspecified
CPT/HCPCS: 71250

== ENCOUNTER 2022-07-13 06:23 | Day surgery (SDC) | payer OTHER ==
[2022-07-10 15:16] VITALS: BMI 19.8
--- NOTE | 2022-07-12 16:24 | P.GSHP ---
History of Present Illness H&P Date: 07/12/22 Chief Complaint: Left inguinal hernia 77-year-old male with complaints of left groin bulge for the last 3-4 years. Patient states she has more discomfort in that area recently. He contacted us to schedule operative repair. He was last seen in the office earlier this year. Patient is a smoker but has been cutting back he states. Past Medical History Past Medical History: GERD/Reflux, Hyperlipidemia, Hypertension Additional Past Medical History / Comment(s): THORACIC AORTIC ANEURSYM? pt not aware of this History of Any Multi-Drug Resistant Organisms: None Reported Past Surgical History: Adenoidectomy, Tonsillectomy Past Anesthesia/Blood Transfusion Reactions: No Reported Reaction Smoking Status: Current every day smoker - Past Family History Daughter(s) Family Medical History: No Reported History Mother Family Medical History: No Reported History Medications and Allergies Home Medications Medication Instructions Recorded Confirmed Type Cholecalciferol [Vitamin D3 (25 1,000 unit PO DAILY 04/14/20 07/10/22 History Mcg = 1000 Iu)] Simvastatin [Zocor] 10 mg PO HS 04/14/20 07/10/22 History Aspirin [[place]] 325 mg PO DAILY PRN 07/10/22 07/10/22 History Omeprazole [PriLOSEC] 20 mg PO AC-BRKFST 07/10/22 07/10/22 History amLODIPine BESYLATE [Amlodipine 2.5 mg PO DAILY 07/10/22 07/10/22 History Besylate] Allergies Allergy/AdvReac Type Severity Reaction Status Date / Time No Known Allergies Allergy Verified 07/10/22 14:58 Surgical - Exam Physical exam: General: Well-developed, well-nourished HEENT: Normocephalic, sclerae nonicteric Abdomen: Nontender, nondistended, moderate size reducible left inguinal hernia Extremities: No edema Neuro: Alert and oriented Assessment and Plan (1) Left inguinal hernia Narrative/Plan: 77-year-old male with symptomatic left inguinal hernia. Proceed with da Maria Esther assisted laparoscopic left inguinal hernia repair with mesh, possible open, possible bilateral. Risks of bleeding, infection, recurrence, bladder and bowel injury, numbness, nerve injury, conversion to an open procedure were discussed with the patient. The patient understands and wishes to proceed. Status: Acute Code(s): K40.90 - UNIL INGUINAL HERNIA, W/O OBST OR GANGR, NOT SPCF RECUR SNOMED Code(s): 433090666
[~2022-07-13 06:23] MED LIST: ACETAMINOPHEN TAB 500 MG TAB PO PRN; DEXAMETHASONE SOD PHOSPHATE 4 MG/ML 1 ML VIAL IV ONE; HEPARIN SODIUM,PORCINE/PF 5,000 UNIT/0.5 ML SYRINGE SQ PRN; LACTATED RINGERS 1,000 ML IV SCH; MIDAZOLAM 2 MG/2 ML VIAL IV PRN; ONDANSETRON 4 MG/2 ML VIAL IVP ONE
[2022-07-13] MEDS ORDERED: HYDROmorphone 0.5 MG/0.5 ML SYRINGE IVP PRN (07:00)
[2022-07-13] MEDS ORDERED: TAMSULOSIN 0.4 MG CAP.ER.24H PO ONE (07:20)
[2022-07-13] MEDS ORDERED: fentaNYL (PF) 50 MCG/ML 2 ML AMP ONE (07:29)
[2022-07-13] MEDS ORDERED: SUCCINYLCHOLINE CHLORIDE 200 MG/10 ML VIAL IV ONE (07:29)
[2022-07-13] MEDS ORDERED: GLYCOPYRROLATE 0.2 MG/ML 2 ML VIAL ONE (07:29)
[2022-07-13] MEDS ORDERED: NEOSTIGMINE 1 MG/ML 10 ML VIAL ONE (07:29)
[2022-07-13] MEDS ORDERED: ROCURONIUM 10 MG/ML (5 ML VIAL) IV ONE (07:29)
[2022-07-13] MEDS ORDERED: HYDROmorphone (PF) 1 MG/ML ONE (07:29)
[2022-07-13] MEDS ORDERED: LIDOCAINE 2% INJ 20 MG/ML (2 ML VIAL) ONE (07:29)
[2022-07-13] MEDS ORDERED: KETOROLAC 15 MG/ML 1 ML VIAL ONE (07:29)
[2022-07-13] MEDS ORDERED: PROPOFOL 10 MG/ML 20 ML VIAL IV ONE (07:29)
[2022-07-13 07:50] LABS: Basophils # (A) 0.1 k/uL (0-0.2); Basophils % (A) 1 %; Eosinophils # (A) 0.3 k/uL (0-0.7); Eosinophils % (A) 3 %; HCT 41.8 % (39.0-53.0); HGB 14.3 gm/dL (13.0-17.5); Lymphocytes # (A) 4.1 k/uL (1.0-4.8); Lymphocytes % (A) 36 %; MCH 31.2 pg (25.0-35.0); MCHC 34.1 g/dL (31.0-37.0); MCV 91.4 fL (80.0-100.0); Mean Platelet Volume 8.9; Monocytes # (A) 0.6 k/uL (0-1.0); Monocytes % (A) 5 %; Neutrophils # (A) 5.9 k/uL (1.3-7.7); Neutrophils % (A) 52 %; Platelet Count 353 k/uL (150-450); RBC 4.57 m/uL (4.30-5.90); RDW 13.9 % (11.5-15.5); WBC 11.3 k/uL (3.8-10.6)
[2022-07-13] MEDS ORDERED: BUPIVACAIN-EPI 0.25%-1:200,000 30 ML VIAL SQ ONE (07:55)
--- NOTE | 2022-07-13 09:31 | P.OP ---
Date of Procedure: 07/13/22 Procedure(s) Performed: PREOPERATIVE DIAGNOSIS: Left inguinal hernia POSTOPERATIVE DIAGNOSIS: Left direct inguinal hernia PROCEDURE: Laparoscopic da Maria Esther assisted repair left direct inguinal hernia SURGEON: Dr. Pierce ANESTHESIA: General OPERATIVE PROCEDURE DETAILS: Patient was placed in the operating table in the supine position. The patient was placed under general anesthesia. The abdomen was prepped and draped in usual sterile fashion. A small curvilinear supraumbilical incision was made. The fascia was retracted anteriorly with [place] forceps. The Veress needle was inserted. The saline drop test was normal. Insufflation took place to 15 mmHg. An 8 mm trocar was placed into the peritoneal cavity. 2 additional 8 mm trochars were placed in the right upper quadrant and left upper quadrant under visualization. The robotic arms were then brought in and docked into place. The fenestrated bipolar was used in the left arm and the laparoscopic curtis was utilized in the right arm. A 30 8 mm scope was used in the up position. The peritoneal cavity was inspected. Patient had a moderate sized direct inguinal hernia containing a loop of small bowel. This was reduced without difficulty. The peritoneum was incised in a horizontal fashion cephalad to the internal inguinal ring. Following that careful dissection of the preperitoneal space took place. This took place using both electrocautery, sharp dissection but primarily blunt dissection. Dissection took place medially to the right side of the pubic symphysis. Full dissection took place laterally as well. The hernia sac was fully dissected. Once we had adequate space the large Pro mottle lay up operator mesh was advanced into the prep eritoneal space and flattened out appropriately to cover all potential hernia sites. A short running 30 absorbable be locked suture was used along Andres's ligament extending superiorly and medially to secure the mesh in place. The peritoneal defect was then closed using a absorbable 2-0 VLok suture. The hernia sac was incorporated into the peritoneal closure to help prevent future recurrence. The pneumoperitoneum was then evacuated. The skin of all 3 sites was closed using a 4-0 Monocryl stitch. Skin glue was then applied. TYPE OF MESH USED: Pro mottle lay up operator 15 x 10 LOCATION OF MESH: Preperitoneal FIXATION: 30V LOC PREOPERATIVE DISCUSSION ON SMOKING CESSASTION: Yes PREOPERATIVE DISCUSSION ON MORBID OBESITY: Yes PREOPERATIVE DISCUSSION ON APPROPRIATE USE OF NARCOTIC USE: Yes PREOPERATIVE EDUCATION: Multi Modal, Smoking Cessation and Weight Loss with BMI over 35. DISPOSITION: Stable to recovery room
[2022-07-13 09:34] VITALS: TEMP 96.8
[2022-07-13] MEDS ORDERED: ALBUTEROL NEBULIZED 2.5 MG/3 ML INHALATION ONE (09:34)
[2022-07-13] MEDS ORDERED: LACTATED RINGERS 1,000 ML IV ONE (10:25)
[2022-07-13 11:32] VITALS: BP 122/89; PULSE 67; RESP 17
[2022-07-13] MEDS ORDERED: ACETAMINOPHEN TAB 325 MG TAB PO SCH (13:00)
[2022-07-13] MEDS ORDERED: IBUPROFEN 600 MG TAB PO SCH (16:00)
== END 2022-07-13 12:45 | disposition home or self-care (01) ==
LOC: OR 06:23
PROVIDERS: ATTEND Surgery
DX: K40.90 Unilateral inguinal hernia, without obstruction or gangrene, not specified as recurrent (principal); I10 Essential (primary) hypertension; E78.5 Hyperlipidemia, unspecified; K21.9 Gastro-esophageal reflux disease without esophagitis; Z90.49 Acquired absence of other specified parts of digestive tract; Z90.89 Acquired absence of other organs; F17.200 Nicotine dependence, unspecified, uncomplicated; Z79.82 Long term (current) use of aspirin; Z79.899 Other long term (current) drug therapy
CPT/HCPCS: 49650; 85025; C1781; J2250; J0330; J1100; J2710; J0690; J2405; J3010; J1170; J1885; J2704; J1644; J2001

== ENCOUNTER → 2023-02-18 | Outpatient (CLI) | payer OTHER ==
--- NOTE | 2023-02-19 08:52 | CT ---
EXAMINATION TYPE: CT chest wo con DATE OF EXAM: 02/18/2023 COMPARISON: 03/09/2022 HISTORY: thoracic aortic aneurysm wo rupture. CT DLP: 165.[address] of the chest was performed with lung and mediastinal window settings submitted. The la ck of contrast limits evaluation of the vascular, mediastinal and parenchymal structures including th e upper abdomen. LUNGS: Upper lobe emphysematous changes noted. Hyperinflation compatible COPD. The lungs are clear an d free of infiltrate. No atelectasis. No pulmonary nodule or mass is detected. No pleural effusion. No CT evidence of interstitial lung disease. MEDIASTINUM/JOSE: Ascending thoracic aorta measures 4.4 cm in maximal dimension versus 4.5 cm reporte d previously. There is mild atheromatous change. Ectasia of the aortic arch. There is also aneurysmal dilatation of the descending thoracic aorta measuring 3.3 cm versus 3.3 cm previously. The heart is not enlarged. Coronary arterial calcifications seen. No evidence for mediastinal mass. No lymph no pierre greater than 1cm. UPPER ABDOMEN: Layering gallstones identified. OTHER: No significant other abnormality. IMPRESSION: 1. Ascending thoracic aortic aneurysm as well as stable descending thoracic aortic aneurysm.
== END | disposition home or self-care (01) ==
LOC: RADCTMAIN 17:07
DX: I71.23 Aneurysm of the descending thoracic aorta, without rupture (principal); I71.21 Aneurysm of the ascending aorta, without rupture
CPT/HCPCS: 71250

== ENCOUNTER → 2024-03-10 | Outpatient (CLI) | payer MEDICARE, OTHER ==
[2024-03-10 14:35] LABS: African American GFR (CKD) >90 (>60 ml/min/1.73 sqM); Blood Urea Nitrogen 11 mg/dL (9-20); Non-African American GFR(CKD) >90 (>60 ml/min/1.73 sqM)
--- NOTE | 2024-03-10 22:30 | CT ---
EXAMINATION TYPE: CT angio chest, without and with contrast DATE OF EXAM: 03/10/2024 COMPARISON: 02/18/2023 HISTORY: 79-year-old male I71.20 thoracic aneurysm. TECHNIQUE: Contiguous axial scanning of the chest before and after the administration of 100ml mL of Isovue 370. Coronal/sagittal reconstructions performed. 3-D reconstructions generated on a dedicated independent workstation. CT DLP: 398.50mGycm. Automatic exposure control utilized for a dose reduction. FINDINGS: Heart normal size without pericardial effusion. Prominent LAD and RCA coronary artery calcifications are present. Mild aneurysm aortic root at 4.1 cm previously measured at 3.8 cm. Mild aneurysm ascending aorta 4.1 cm previously measured at 4.3 cm. Minimal atherosclerotic arch calcifications. 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 Similar ectatic upper descending thoracic aorta 3.2 cm. Mild aneurysm mid descending thoracic aorta 3 .3 cm unchanged. Ectatic lower descending thoracic aorta 2.8 cm, unchanged. There is advanced emphysematous change. Dependent mucoid debris within the lower trachea extending in to the right mainstem bronchus. Mild diffuse bronchial wall thickening. 5 mm left upper lobe pulmonary nodule, axial image 33 is unchanged. No consolidation or pleural effus ion. Small hiatal hernia. Small fat-containing bilateral Bochdalek hernias. Bones: Accentuated midthoracic kyphosis. Old superior endplate deformity of T12. Scattered mild-to-mo derate degenerative disc disease. More advanced spondylotic changes in the visualized cervical spine. IMPRESSION: 1. Fairly stable mild aneurysm of the aortic root and ascending aorta at 4.1 cm. Also stable mild ane urysm mid descending thoracic aorta 3.3 cm. 2. COPD with advanced emphysema and some dependent layering debris within the lower trachea and right mainstem bronchus. A 5 mm left upper lobe pulmonary nodule is unchanged. 3. Small hiatal hernia.
== END | disposition home or self-care (01) ==
LOC: RADCTMAIN 13:37
PROVIDERS: ATTEND Surgery
DX: J43.9 Emphysema, unspecified (principal); I71.21 Aneurysm of the ascending aorta, without rupture; I71.23 Aneurysm of the descending thoracic aorta, without rupture; R91.1 Solitary pulmonary nodule; K44.9 Diaphragmatic hernia without obstruction or gangrene
CPT/HCPCS: 82565; 84520; 71275; 36415; Q9967